=== PATIENT | male | born 1930 | race Caucasian/White ===

== ENCOUNTER 2018-01-01 08:07 | Outpatient (CLI) | payer OTHER ==
[~2018-01-01 08:07] MED LIST: GADOBUTROL 7.5 MMOL/7.5 ML VIAL ONE
[2018-01-01] MEDS ORDERED: GADOBUTROL 7.5 MMOL/7.5 ML VIAL IVP ONE (08:56)
--- NOTE | 2018-01-02 02:54 | MRI Report ---
EXAM: MRI BRAIN WITHOUT AND WITH CONTRAST EXAM DATE: 01/01/2018 09:01 AM. CLINICAL HISTORY: Tremor, parkinsonism, history of lymphoma COMPARISON: None. TECHNIQUE: Multiplanar, multisequence T1-weighted and fluid-sensitive MR sequences of the brain were performed. Sequences optimized for routine evaluation. Other: None. IV Contrast: 7.5 mL Gadavist. FINDINGS: Brain Volume: Normal for age. Parenchyma: No acute hemorrhage, mass, or infarct. There are several foci of increased T2 signal invo lving white matter bilateral cerebral hemispheres. No abnormal enhancement. Ventricles/Cisterns: There is mild ventricular dilatation. There is similar prominence of sulci. No m ass effect. No midline shift. No abnormal extra-axial fluid collection or hemorrhage. Orbits: Symmetric and unremarkable. Sella Turcica: No evidence of mass. IAC: Symmetric and unremarkable. Vasculature: Normal signal flow void is seen in the major arterial structures at the skull base. The dural sinuses are patent and enhance normally. Sinuses: There is mild paranasal sinus mucosal thickening. No sinus fluid levels. Bones: No focal pathologic appearing marrow signal changes. Other: None. IMPRESSION: 1. No evidence of infarct, mass, or other acute intracranial process. 2. Mild age-related volume loss. [facility] Referring Provider Line: [phone] SITE ID: [id number]
== END 2018-01-01 08:08 | disposition home or self-care (01) ==
LOC: DI 08:07
PROVIDERS: ATTEND Psychiatry & Neurology Neurology
DX: G20 Parkinson's disease (principal); Z85.72 Personal history of non-Hodgkin lymphomas
CPT/HCPCS: 70553; A9585

== ENCOUNTER 2018-02-04 10:31 | Outpatient (CLI) | payer OTHER | END 2018-02-04 10:32 | disposition home or self-care (01) | LOC: SC 10:31 | PROVIDERS: ATTEND Internal Medicine Pulmonary Disease | DX: G47.30 Sleep apnea, unspecified (principal); G47.10 Hypersomnia, unspecified; R06.83 Snoring; G47.8 Other sleep disorders | CPT/HCPCS: 99203; 99212 ==

== ENCOUNTER 2018-02-18 10:39 | Outpatient (CLI) | payer OTHER ==
--- NOTE | 2018-02-18 11:58 | XRAY Report ---
Procedure Date: 02/18/2018 Accession Number: [id number] / [id number] Procedure: FL - Modified Barium Swallow W/SP CPT Code: FULL RESULT: EXAM: Modified Barium Swallow W/SP DATE: 02/18/2018 11:05 AM CLINICAL HISTORY: CVA WITH RIGHT HEMIPARESIS COMPARISON: None. TECHNIQUE: Under the direction of speech pathology, patient swallowed various consistencies of barium under lateral fluoroscopic observation of the neck. Fluoroscopic exposure time: 45 seconds Number of fluoroscopic images: 1. Cine fluoroscopy recorded. FINDINGS: Airway Protection: Normal epiglottic motion. Single episode of brief tracheal penetration. Other: Marked anterior osteophytosis at C4-5 with holdup of food bolus at this level. Please also refer to full report from Speech Pathology. IMPRESSION: Marked anterior osteophytosis at C4-5. [facility]
--- NOTE | 2018-02-20 15:03 | Ultrasound Report ---
Procedure Date: 02/18/2018 Accession Number: [id number] / [id number] Procedure: US - Carotid Doppler Complete CPT Code: FULL RESULT: EXAM: BILATERAL CAROTID AND VERTEBRAL ARTERY DUPLEX DOPPLER ULTRASOUND: EXAM DATE: 02/18/2018 12:54 PM CLINICAL HISTORY: Cerebrovascular accident. Right hemiparesis. Headache. COMPARISON: None. TECHNIQUE: Grayscale imaging, color Doppler, and duplex spectral Doppler were used to evaluate the carotid and vertebral arteries bilaterally. Static images were obtained. FINDINGS: There is mild atherosclerotic plaque seen in the carotid bulbs bilaterally. No high-grade or ulcerative plaque is identified in the right or left common or internal carotid arteries. Normal antegrade flow is present in bilateral vertebral arteries. VELOCITIES (cm/sec): Right CCA prox: PSV 62 cm/sec CCA dist: PSV 67 cm/sec, EDV 14 cm/sec ECA: PSV 68 cm/sec, Bulb: PSV 41 cm/sec, EDV 9 cm/sec, ICA/CCA PSV Ratio 0.61 ICA prox: PSV 56 cm/sec, EDV 16 cm/sec, ICA/CCA PSV Ratio 0.84 ICA mid: PSV 91 cm/sec, EDV 30 cm/sec, ICA/CCA PSV Ratio 1.36 ICA dist: PSV 71 cm/sec, EDV 23 cm/sec, ICA/CCA PSV Ratio 1.06 Vert: PSV 53 cm/sec Vert flow direction: Antegrade Left CCA prox: PSV 73 cm/sec CCA dist: PSV 79 cm/sec, EDV 18 cm/sec ECA: PSV 50 cm/sec, Bulb: PSV 82 cm/sec, EDV 18 cm/sec, ICA/CCA PSV Ratio 1.04 ICA prox: PSV 90 cm/sec, EDV 29 cm/sec, ICA/CCA PSV Ratio 1.14 ICA mid: PSV 86 cm/sec, EDV 31 cm/sec, ICA/CCA PSV Ratio 1.09 ICA dist: PSV 74 cm/sec, EDV 22 cm/sec, ICA/CCA PSV Ratio 0.94 Vert: PSV 38 cm/sec Vert flow direction: Antegrade ICA diameter stenosis: Right: <50% by velocity and <70% by NASCET criteria. Left: <50% by velocity and <70% by NASCET criteria. IMPRESSION: 1. Mild bilateral carotid artery plaquing. 2. In the right carotid artery there are no elevated carotid artery velocities to suggest hemodynamically significant stenosis. 3. In the left carotid artery there are no elevated carotid artery velocities to suggest hemodynamically significant stenosis. 4. Normal antegrade flow is present in bilateral vertebral arteries. General Recommendations: Stenosis =50% ICA - Follow-up ultrasound 6-12 months Stenosis <50% ICA - High Risk Patient with plaque - Follow-up ultrasound 1-2 years Normal Study but High Risk Patient - Follow-up ultrasound 3-5 years Management recommendations and diagnostic criteria are based on current IAC endorsed standards in Carotid Artery Stenosis: Grayscale and Doppler Ultrasound Diagnosis. Validated velocity measurements with angiographic measurements and velocity criteria are extrapolated from diameter data as defined by the Society of Radiologists in Ultrasound Consensus Conference Radiology 2003; 229;340-346. [facility]
== END 2018-02-18 10:40 | disposition home or self-care (01) ==
LOC: DI 10:39
PROVIDERS: ATTEND Family Medicine
DX: R51 Headache (principal); I10 Essential (primary) hypertension; I69.959 Hemiplegia and hemiparesis following unspecified cerebrovascular disease affecting unspecified side; M25.78 Osteophyte, vertebrae
CPT/HCPCS: 74230; 93880

== ENCOUNTER 2018-03-17 19:32 | Outpatient (CLI) | payer OTHER | END 2018-03-17 19:33 | disposition home or self-care (01) | LOC: SC 19:32 | PROVIDERS: ATTEND Internal Medicine Pulmonary Disease | DX: G47.33 Obstructive sleep apnea (adult) (pediatric) (principal); G47.61 Periodic limb movement disorder | CPT/HCPCS: 95810 ==

== ENCOUNTER 2018-04-29 14:27 | Outpatient (CLI) | payer OTHER | END 2018-04-29 14:28 | disposition home or self-care (01) | LOC: SC 14:27 | PROVIDERS: ATTEND Nurse Practitioner Family | DX: G47.33 Obstructive sleep apnea (adult) (pediatric) (principal); G47.61 Periodic limb movement disorder | CPT/HCPCS: 99212; 99215 ==

== ENCOUNTER 2018-07-15 20:40 | Outpatient (CLI) | payer OTHER | END 2018-07-15 20:41 | disposition home or self-care (01) | LOC: SC 20:40 | PROVIDERS: ATTEND Internal Medicine Pulmonary Disease | DX: G47.33 Obstructive sleep apnea (adult) (pediatric) (principal); G47.61 Periodic limb movement disorder; I49.3 Ventricular premature depolarization | CPT/HCPCS: 95811 ==

== ENCOUNTER 2018-10-03 09:01 | Outpatient (CLI) | payer OTHER | END 2018-10-03 09:02 | disposition home or self-care (01) | LOC: SC 09:01 | PROVIDERS: ATTEND Nurse Practitioner Family | DX: G47.33 Obstructive sleep apnea (adult) (pediatric) (principal); G47.61 Periodic limb movement disorder; I49.9 Cardiac arrhythmia, unspecified | CPT/HCPCS: 99212; 99214 ==